=== PATIENT | female | born 1995 | race African-American/Black ===

== ENCOUNTER 2016-10-03 15:01 | Emergency (ER) | payer MEDICAID ==
[~2016-10-03] VITALS: Ht 167.6 cm; Wt 57.0 kg
[2016-10-03] MEDS ORDERED: KETOROLAC 60MG/2ML VIAL IM ONE (15:45)
[2016-10-03 16:58] VITALS: BP 115/74
== END 2016-10-03 17:58 | disposition home or self-care (01) ==
LOC: ER 15:32
DX: M25.572 Pain in left ankle and joints of left foot (principal); V43.62XA Car passenger injured in collision with other type car in traffic accident, initial encounter; Y93.89 Activity, other specified; Y92.488 Other paved roadways as the place of occurrence of the external cause
CPT/HCPCS: 73610; 96372; 99284; J1885